=== PATIENT | male | born 2000 | race Two or more races ===

== ENCOUNTER 2021-08-07 22:25 | Emergency (ER) | payer SELFPAY ==
[~2021-08-07] VITALS: Ht 175.3 cm; Wt 78.0 kg
[2021-08-07 22:56] LABS: BASO % 0 % (0-3); EOS # 0.1 x10^3/uL (0.0-0.7); EOS % 1 % (0-3); HEMATOCRIT 42.8 % (39.0-53.0); HEMOGLOBIN 14.3 g/dL (13.0-17.5); LYMPH # 3.8 x10^3/uL (1.0-4.8); LYMPH % 36 % (24-48); MEAN CORPUSCULAR HEMOGLOBIN 29 pg (25-35); MEAN CORPUSCULAR HGB CONC 34 g/dL (31-37); MEAN CORPUSCULAR VOLUME 88 fL (79-100); MONO # 0.8 x10^3/uL (0.0-1.1); MONO % 8 % (0-9); NEUT # 5.7 x10^3/uL (1.8-7.7); NEUT % 55 % (31-73); PLATELET COUNT 363 x10^3/uL (140-400); RED BLOOD COUNT 4.87 x10^6/uL (4.30-5.70); RED CELL DISTRIBUTION WIDTH 13.2 % (11.5-14.5); WHITE BLOOD COUNT 10.4 x10^3/uL (4.0-11.0)
[2021-08-07] MEDS ORDERED: ASPIRIN CHEWABLE 81 MG TABLET. PO ONE (23:00)
[2021-08-07] MEDS ORDERED: ACETAMINOPHEN 500 MG TABLET PO ONE (23:00)
[2021-08-07 23:03] LABS: CALCIUM 8.9 mg/dL (8.5-10.1); GFR 93.4; POTASSIUM 3.2 mmol/L (3.5-5.1)
--- NOTE | 2021-08-07 23:03 | PHYS DOC ---
Past Medical History Past Surgical History: No Surgical History Smoking Status: Never Smoker Alcohol Use: None Adult General Chief Complaint Chief Complaint: CHEST PAIN HPI HPI The patient is a 21-year-old male who is otherwise healthy and an occasional tobacco smoker. He presents for evaluation of left-sided pleuritic chest discomfort radiating up to the left neck at times, with onset about 2 PM this afternoon, about 8 hours prior to arrival. Discomfort is markedly worse with deep breathing but not worse with exertion or better with rest. It is not reproducible to direct palpation. Patient reports severity is a 10 out of 10 but he appears very comfortable. No associated fevers, nausea or vomiting, upper respiratory congestion/rhinorrhea, cough, sore throat, shortness of breath, abdominal pain, flank pain, back pain, pain or swelling to arms or legs. Patient is alert, pleasantly and appropriately interactive and in no acute distress with completely appropriate vital signs upon initial evaluation here in the emergency department. Mr. Yu tells me that he has had this chest pain chronically for many years, since he was a child. He never had it investigated but has a new significant other who encouraged him to seek medical care for his chronic chest pain. He therefore saw a compensation supervisor, Dr. Vega, at [facility] a couple of weeks ago and is scheduled for an echocardiogram to evaluate a systolic murmur which is easily heard on auscultation. He is supposed to follow-up again with Dr. Vega after the echocardiogram. Review of Systems Review of Systems A 12 point review of systems was completed and was negative except for noted in HPI above. Current Medications Current Medications Current Medications Medications (Trade) Dose Ordered Sig/Krissy Start Time Stop Time Status Last Admin Dose Admin Acetaminophen (Tylenol) 1,000 mg 1X ONCE 08/07/21 23:00 08/07/21 23:01 DC 08/07/21 23:00 1,000 MG Aspirin (Aspirin Chewable) 324 mg 1X ONCE 08/07/21 23:00 08/07/21 23:01 DC 08/07/21 23:00 324 MG Allergies Allergies Allergies Coded Allergies Type Severity Reaction Last Updated Verified No Known Allergies Allergy Unknown 08/07/21 Yes Physical Exam Physical Exam 21-year-old male appearing nontoxic and in no acute distress. Head is normocephalic and atraumatic. Neck is supple and nontender. Oropharynx is moist. Lungs are clear to auscultation at all stations. There is normal S1 and S2 without rubs or gallops refill is appropriate, less than 2 seconds globally. Abdomen is soft, nontender and nondistended. Skin is warm dry without cyanosis, clubbing or edema. Psychiatrically, the patient demonstrates appropriate mood and affect and is alert. Evaluation of the extremities reveals BUEs and BLEs neurovascularly intact distally strength 5 out of 5, sensation intact light touch in all nerve distributions, radial, DP and PT pulses 2+ bilaterally, capillary refill less than 2 seconds, hands and feet warm and well-perfused. No dependent peripheral edema distally. No calf tenderness or swelling bilaterally. Homans test is negative bilaterally. Current Patient Data Vital Signs Vital Signs Date Time Temp Pulse Resp B/P (MAP) Pulse Ox O2 Delivery O2 Flow Rate FiO2 08/07/21 22:35 97.8 65 23 137/81 (99) 99 Room Air 97.8 Lab Values Laboratory Tests Test 08/07/21 22:35 08/08/21 00:46 White Blood Count 10.4 x10^3/uL (4.0-11.0) Red Blood Count 4.87 x10^6/uL (4.30-5.70) Hemoglobin 14.3 g/dL (13.0-17.5) Hematocrit 42.8 % (39.0-53.0) Mean Corpuscular Volume 88 fL (79-100) Mean Corpuscular Hemoglobin 29 pg (25-35) Mean Corpuscular Hemoglobin Concent 34 g/dL (31-37) Red Cell Distribution Width 13.2 % (11.5-14.5) Platelet Count 363 x10^3/uL (140-400) Neutrophils (%) (Auto) 55 % (31-73) Lymphocytes (%) (Auto) 36 % (24-48) Monocytes (%) (Auto) 8 % (0-9) Eosinophils (%) (Auto) 1 % (0-3) Basophils (%) (Auto) 0 % (0-3) Neutrophils # (Auto) 5.7 x10^3/uL (1.8-7.7) Lymphocytes # (Auto) 3.8 x10^3/uL (1.0-4.8) Monocytes # (Auto) 0.8 x10^3/uL (0.0-1.1) Eosinophils # (Auto) 0.1 x10^3/uL (0.0-0.7) Basophils # (Auto) 0.0 x10^3/uL (0.0-0.2) D-Dimer (Rosalia) 0.29 ug/mlFEU (0.00-0.50) Sodium Level 141 mmol/L (136-145) Potassium Level 3.2 mmol/L (3.5-5.1) L Chloride Level 102 mmol/L (98-107) Carbon Dioxide Level 28 mmol/L (21-32) Anion Gap 11 (6-14) Blood Urea Nitrogen 18 mg/dL (8-26) Creatinine 1.0 mg/dL (0.7-1.3) Estimated GFR (Cockcroft-Gault) 93.4 BUN/Creatinine Ratio 18 (6-20) Glucose Level 52 mg/dL (70-99) L Calcium Level 8.9 mg/dL (8.5-10.1) Total Bilirubin 0.4 mg/dL (0.2-1.0) Aspartate Amino Transferase (AST) 22 U/L (15-37) Alanine Aminotransferase (ALT) 22 U/L (16-63) Alkaline Phosphatase 74 U/L (46-116) Troponin I High Sensitivity 6 ng/L (4-75) 5 ng/L (4-75) QF-Dkq-N-Type Natriuretic Peptide 10 pg/mL (0-124) Total Protein 8.1 g/dL (6.4-8.2) Albumin 4.5 g/dL (3.4-5.0) Albumin/Globulin Ratio 1.3 (1.0-1.7) Laboratory Tests 08/07/21 22:35 Laboratory Tests 08/07/21 22:35 EKG EKG Sinus rhythm, rate 78, no acute ST elevation or depression, OR 176, QRS 112, QTc 448, EP interpretation. Nonischemic tracing, intervals appropriate. Radiology/Procedures Radiology/Procedures Exam: Chest one view INDICATION: Chest pain TECHNIQUE: Frontal view of the chest Comparisons: None FINDINGS: The cardiomediastinal silhouette and pulmonary vessels are within normal limits. The lung and pleural spaces are clear. IMPRESSION: No acute cardiopulmonary process. Electronically signed by: Janay Vasquez MD (08/07/2021 11:19 PM) [facility] DICTATED and SIGNED BY: JANAY VASQUEZ MD DATE: 08/07/21 2895 Course & Med Decision Making Course & Med Decision Making Well-appearing 21-year-old gentleman presents for evaluation of acute on chronic left-sided atypical pleuritic chest pain. Has chronic very similar chest pain in the setting of systolic murmur which is being evaluated by cardiology at [facility]. HEART score 1 (+1 for smoking), low risk for MACE. Wells low risk for PE. Checking labs, EKG and chest x-ray and will give a full-strength aspirin as well as some Tylenol for discomfort and will then reevaluate. If work-up is reassuring, anticipate discharge home to follow-up very closely with cardiology as already scheduled. Patient understands and agrees with this plan of care. 0115: Labs, EKG, chest x-ray unremarkable. D-dimer negative. Second set troponin negative. Chronic issue, no new features today. Following up appropriately with cardiology already. Will discharge home. Patient understands that if he feels worse instead of better or develops other new symptoms of concern that she return to the emergency department immediately for reevaluation. All questions were answered. Fluent telephonic Maori interpretation was offered but patient declined that and preferred to have his friend translate. Dragon Disclaimer Dragon Disclaimer This electronic medical record was generated, in whole or in part, using a voice recognition dictation system. Departure Departure Impression: Primary Impression: Pleuritic chest pain Disposition: HOME / SELF CARE / HOMELESS Condition: STABLE Patient Instructions: Chest Pain (Nonspecific) Additional Instructions: Follow-up very closely with your compensation supervisor in the office as already scheduled for a reevaluation of your symptoms and a discussion of next best steps in care. Drink plenty of fluids and get plenty of rest. You may try taking 600 mg of ibuprofen (three 200mg pills) every 6 hours as needed for discomfort. Return to the emergency department right away for worsening symptoms of any kind or with any other new symptoms of concern. JOSE WEBBER MD Aug 07, 2021 23:03
[2021-08-07 23:08] LABS: ALBUMIN 4.5 g/dL (3.4-5.0); ALBUMIN/GLOBULIN RATIO 1.3 (1.0-1.7); TOTAL BILIRUBIN 0.4 mg/dL (0.2-1.0); TOTAL PROTEIN 8.1 g/dL (6.4-8.2)
--- NOTE | 2021-08-07 23:21 | RAD ---
Exam: Chest one view INDICATION: Chest pain TECHNIQUE: Frontal view of the chest Comparisons: None FINDINGS: The cardiomediastinal silhouette and pulmonary vessels are within normal limits. The lung and pleural spaces are clear. IMPRESSION: No acute cardiopulmonary process. Electronically signed by: Janay Dow MD (08/07/2021 11:19 PM) [facility]
[2021-08-08 01:03] VITALS: BP 98/55
--- NOTE | 2021-08-08 07:27 | EKG ---
[facility] [address] [place] [address] Test Date: 2021-08-07 Test Time: 22:46:00 Pat Name: VON WILSON Department: Room: Gender: Conveyor Maintenance Mechanic: : [id number] Requested By: JOSE WEBBER Order Number: [id number] Reading MD: Jack Waddell Measurements Intervals [place] Rate: 78 P: 51 [place]: 176 QRS: 86 QRSD: 112 T: 31 QT: 390 QTc: 448 Interpretive Statements SINUS BRADYCARDIA AXIS NORMAL CONSIDERING AGE PROLONGED WA INTERVAL Electronically Signed On 08-09-2021 13:22:00 CDT by Jack Waddell
== END 2021-08-08 01:31 | disposition home or self-care (01) ==
LOC: ER 22:25
DX: R07.81 Pleurodynia (principal); Z72.0 Tobacco use
CPT/HCPCS: 36415; 71045; 80053; 83880; 84484; 85025; 85379; 93005; 99285-25